=== PATIENT | male | born 1945 | race Caucasian/White ===

== ENCOUNTER 2023-08-23 14:39 | Inpatient (IN) | payer OTHER, MEDICARE ==
[2023-08-23 17:03] LABS: BASO % 1.4 % (0-2.0); EOS % 1.8 % (0-4.5); HEMATOCRIT 42.2 % (35.4-49); HEMOGLOBIN 14.7 GM/dL (11.7-16.9); LYMPH % 17.4 % (8-40); MCH 28.5 pg (25.7-33.7); MCHC 34.8 g/dl (32.0-35.9); MEAN CELL VOLUME 81.8 fl (80-96); MEAN PLT VOLUME 7.3 fl (7.5-11.1); MONO % 7.9 % (3.8-10.2); NEUT % 71.5 % (42.8-82.8); PLATELET COUNT 279 10^3/uL (134-434); RBC 5.16 M/mm3 (4.00-5.60); RDW 13.2 % (11.9-15.9); WHITE BLOOD COUNT 7.8 K/mm3 (4.0-10.0)
[2023-08-23 17:07] LABS: EPI CELLS 2 /uL (0-25.1); HYALINE CASTS 3 /uL (0-3.1); URINE APPEARANCE CLOUDY; URINE BACTERIA 2165 /uL (0-1359); URINE BILIRUBIN NEGATIVE (NEGATIVE); URINE COLOR YELLOW; URINE GLUCOSE (UA) NEGATIVE (NEGATIVE); URINE KETONE TRACE (NEGATIVE); URINE LEUK ESTERASE 2+ (NEGATIVE); URINE NITRITE POSITIVE (NEGATIVE); URINE PROTEIN 1+ (NEGATIVE); URINE WBC 902 /uL (0-25.8)
[2023-08-23] MEDS ORDERED: CEFTRIAXONE 1,000 MG in DEXTROSE 5%-WATER - 50 ML IVPB ONE (17:13)
[2023-08-23] MEDS ORDERED: CEFTRIAXONE 1 GM/50 ML BAG ONE (17:16)
[2023-08-23 17:18] LABS: POTASSIUM 3.6 mmol/L (3.5-5.1)
[2023-08-23 17:20] LABS: CALCIUM 9.4 mg/dL (8.5-10.1)
[2023-08-23 17:21] LABS: ALBUMIN 3.6 g/dl (3.4-5.0); BLOOD UREA NITROGEN 10.3 mg/dL (7-18); MAGNESIUM 1.9 mg/dL (1.8-2.4)
[2023-08-23 17:24] LABS: CREATININE 0.9 mg/dL (0.55-1.3)
[2023-08-23 17:25] LABS: BILIRUBIN,TOTAL 0.7 mg/dL (0.2-1); TOT PROT 6.6 g/dl (6.4-8.2)
[2023-08-23 17:52] LABS: YEAST NONE SEEN (NEGATIVE)
[2023-08-24] MEDS ORDERED: SODIUM CHLORIDE 1,000 ML IV SCH (01:30)
[2023-08-24] MEDS: INSULIN SLIDING SCALE (NOVOLOG) 1 VIAL SQ SCH ×4 (06:21→22:49)
[2023-08-24] MEDS: LOSARTAN POTASSIUM 50 MG TABLET PO SCH ×2 (06:22→09:48)
[2023-08-24 08:37] LABS: HEMATOCRIT 39.6 % (35.4-49); HEMOGLOBIN 13.2 GM/dL (11.7-16.9); MCH 27.8 pg (25.7-33.7); MCHC 33.3 g/dl (32.0-35.9); MEAN CELL VOLUME 83.5 fl (80-96); MEAN PLT VOLUME 7.7 fl (7.5-11.1); PLATELET COUNT 227 10^3/uL (134-434); RBC 4.74 M/mm3 (4.00-5.60); RDW 12.9 % (11.9-15.9); WHITE BLOOD COUNT 16.3 K/mm3 (4.0-10.0)
[2023-08-24 08:43] LABS: POTASSIUM 3.1 mmol/L (3.5-5.1)
[2023-08-24 08:51] LABS: CALCIUM 8.5 mg/dL (8.5-10.1)
[2023-08-24 08:52] LABS: BLOOD UREA NITROGEN 16.1 mg/dL (7-18); MAGNESIUM 1.9 mg/dL (1.8-2.4)
[2023-08-24 08:55] LABS: CREATININE 1.1 mg/dL (0.55-1.3); PHOSPHOROUS 2.7 mg/dL (2.5-4.9)
[2023-08-24 08:56] LABS: BILIRUBIN,TOTAL 0.8 mg/dL (0.2-1); TOT PROT 5.7 g/dl (6.4-8.2)
[2023-08-24] MEDS: ENOXAPARIN NA (PORCINE) 40 MG/0.4 ML DISP.SYRIN SQ SCH (09:48)
[2023-08-24] MEDS ORDERED: HYDROCHLOROTHIAZIDE 25 MG TABLET (FP) PO SCH (10:00)
[2023-08-24] MEDS: POTASSIUM CHLORIDE TABS 20 MEQ TABLET.ER (FP) PO SCH ×2 (10:22→22:49)
[2023-08-24] MEDS: VERAPAMIL HCL 120 MG E.R. TABLET PO SCH (12:08)
[2023-08-24] MEDS: CEFTRIAXONE 1 GM in DEXTROSE 5%-WATER - 50 ML IVPB SCH (17:45)
[2023-08-24] MEDS: FINASTERIDE 5 MG TABLET (FP) PO SCH (17:45)
[2023-08-24] MEDS ORDERED: INSULIN (NOVOLOG) ASPART 100 UNITS/ML 10ML VIAL ONE (18:46)
[2023-08-24] MEDS: QUEtiapine FUMARATE 25 MG TABLET PO SCH (22:50)
[2023-08-25] MEDS: INSULIN SLIDING SCALE (NOVOLOG) 1 VIAL SQ SCH ×4 (08:00→21:50)
[2023-08-25] MEDS: FINASTERIDE 5 MG TABLET (FP) PO SCH (09:16)
[2023-08-25] MEDS: POTASSIUM CHLORIDE TABS 20 MEQ TABLET.ER (FP) PO SCH (09:16)
[2023-08-25] MEDS: VERAPAMIL HCL 120 MG E.R. TABLET PO SCH (09:16)
[2023-08-25] MEDS: TAMSULOSIN HCL 0.4 MG CAP PO SCH (09:16)
[2023-08-25] MEDS: LOSARTAN POTASSIUM 50 MG TABLET PO SCH (09:16)
[2023-08-25] MEDS: ENOXAPARIN NA (PORCINE) 40 MG/0.4 ML DISP.SYRIN SQ SCH (09:16)
[2023-08-25 10:03] LABS: BASO % 1.2 % (0-2.0); EOS % 1.4 % (0-4.5); HEMATOCRIT 40.5 % (35.4-49); HEMOGLOBIN 13.6 GM/dL (11.7-16.9); LYMPH % 14.7 % (8-40); MCH 27.9 pg (25.7-33.7); MCHC 33.5 g/dl (32.0-35.9); MEAN CELL VOLUME 83.2 fl (80-96); MEAN PLT VOLUME 7.3 fl (7.5-11.1); MONO % 7.4 % (3.8-10.2); NEUT % 75.3 % (42.8-82.8); PLATELET COUNT 196 10^3/uL (134-434); RBC 4.86 M/mm3 (4.00-5.60); RDW 12.8 % (11.9-15.9); WHITE BLOOD COUNT 7.8 K/mm3 (4.0-10.0)
[2023-08-25 10:26] LABS: POTASSIUM 3.9 mmol/L (3.5-5.1)
[2023-08-25 10:33] LABS: ALBUMIN 3.2 g/dl (3.4-5.0); BLOOD UREA NITROGEN 14.9 mg/dL (7-18); CALCIUM 8.6 mg/dL (8.5-10.1); MAGNESIUM 1.8 mg/dL (1.8-2.4)
[2023-08-25 10:36] LABS: CREATININE 0.9 mg/dL (0.55-1.3)
[2023-08-25 10:38] LABS: BILIRUBIN,TOTAL 0.6 mg/dL (0.2-1)
[2023-08-25] MEDS: CEFTRIAXONE 1 GM in DEXTROSE 5%-WATER - 50 ML IVPB SCH (17:47)
[2023-08-25] MEDS: QUEtiapine FUMARATE 25 MG TABLET PO SCH (21:45)
[2023-08-25 23:59] VITALS: RESP 18
[2023-08-26] MEDS: INSULIN SLIDING SCALE (NOVOLOG) 1 VIAL SQ SCH ×4 (06:44→21:32)
[2023-08-26] MEDS: ENOXAPARIN NA (PORCINE) 40 MG/0.4 ML DISP.SYRIN SQ SCH (09:02)
[2023-08-26] MEDS: FINASTERIDE 5 MG TABLET (FP) PO SCH (09:03)
[2023-08-26] MEDS: TAMSULOSIN HCL 0.4 MG CAP PO SCH (09:03)
[2023-08-26] MEDS: LOSARTAN POTASSIUM 50 MG TABLET PO SCH (09:03)
[2023-08-26] MEDS: VERAPAMIL HCL 120 MG E.R. TABLET PO SCH (09:24)
[2023-08-26 09:57] LABS: EOS % 3.7 % (0-4.5); HEMATOCRIT 41.2 % (35.4-49); HEMOGLOBIN 13.6 GM/dL (11.7-16.9); LYMPH % 20.9 % (8-40); MCHC 33.1 g/dl (32.0-35.9); MEAN CELL VOLUME 84.7 fl (80-96); MEAN PLT VOLUME 7.8 fl (7.5-11.1); MONO % 8.5 % (3.8-10.2); NEUT % 65.9 % (42.8-82.8); PLATELET COUNT 196 10^3/uL (134-434); RBC 4.86 M/mm3 (4.00-5.60); RDW 13.1 % (11.9-15.9); WHITE BLOOD COUNT 7.1 K/mm3 (4.0-10.0)
[2023-08-26 10:12] LABS: POTASSIUM 4.6 mmol/L (3.5-5.1)
[2023-08-26 10:14] LABS: CALCIUM 8.7 mg/dL (8.5-10.1)
[2023-08-26 10:15] LABS: ALBUMIN 3.2 g/dl (3.4-5.0); BLOOD UREA NITROGEN 17.9 mg/dL (7-18)
[2023-08-26 10:18] LABS: CREATININE 0.9 mg/dL (0.55-1.3)
[2023-08-26 10:19] LABS: BILIRUBIN,TOTAL 0.8 mg/dL (0.2-1)
[2023-08-26] MEDS ORDERED: INSULIN (NOVOLOG) ASPART 100 UNITS/ML 10ML VIAL ONE ×2 (12:16→18:07)
[2023-08-26] MEDS: CEFTRIAXONE 1 GM in DEXTROSE 5%-WATER - 50 ML IVPB SCH (18:12)
[2023-08-26] MEDS: QUEtiapine FUMARATE 25 MG TABLET PO SCH (21:28)
[2023-08-27] MEDS: INSULIN SLIDING SCALE (NOVOLOG) 1 VIAL SQ SCH ×2 (06:54→12:18)
[2023-08-27] MEDS: ENOXAPARIN NA (PORCINE) 40 MG/0.4 ML DISP.SYRIN SQ SCH (09:19)
[2023-08-27] MEDS: VERAPAMIL HCL 120 MG E.R. TABLET PO SCH (09:19)
[2023-08-27] MEDS: LOSARTAN POTASSIUM 50 MG TABLET PO SCH (09:19)
[2023-08-27] MEDS: TAMSULOSIN HCL 0.4 MG CAP PO SCH (09:19)
[2023-08-27] MEDS: FINASTERIDE 5 MG TABLET (FP) PO SCH (09:20)
[2023-08-27 09:46] LABS: BASO % 0.9 % (0-2.0); EOS % 4.6 % (0-4.5); HEMATOCRIT 37.7 % (35.4-49); HEMOGLOBIN 13.2 GM/dL (11.7-16.9); LYMPH % 22.4 % (8-40); MCHC 34.9 g/dl (32.0-35.9); MEAN CELL VOLUME 82.9 fl (80-96); MEAN PLT VOLUME 7.9 fl (7.5-11.1); MONO % 11.2 % (3.8-10.2); NEUT % 60.9 % (42.8-82.8); PLATELET COUNT 192 10^3/uL (134-434); RBC 4.55 M/mm3 (4.00-5.60); RDW 13.1 % (11.9-15.9); WHITE BLOOD COUNT 7.1 K/mm3 (4.0-10.0)
[2023-08-27 10:09] LABS: POTASSIUM 4.2 mmol/L (3.5-5.1)
[2023-08-27 10:21] LABS: ALBUMIN 2.9 g/dl (3.4-5.0)
[2023-08-27 10:22] LABS: CALCIUM 8.4 mg/dL (8.5-10.1); MAGNESIUM 2.1 mg/dL (1.8-2.4)
[2023-08-27 10:24] LABS: CREATININE 0.8 mg/dL (0.55-1.3)
[2023-08-27 10:26] LABS: BILIRUBIN,TOTAL 0.4 mg/dL (0.2-1); TOT PROT 5.8 g/dl (6.4-8.2)
[2023-08-27 12:30] VITALS: BP 118/74; PULSE 73; TEMP 98.1
[2023-08-28] MEDS ORDERED: CEPHALEXIN MONOHYDRATE 500 MG CAPSULE (UD) PO SCH (06:00)
== END 2023-08-27 13:50 | DRG 690 ==
LOC: JER 14:39 → JERBED 19:54 → J8W 08-24 02:11 → OBSVTOIN 08-24 14:00
PROVIDERS: ADMIT Internal Medicine; ATTEND Nurse Practitioner Acute Care
DX: N39.0 Urinary tract infection, site not specified (principal); N41.0 Acute prostatitis; I10 Essential (primary) hypertension; E11.42 Type 2 diabetes mellitus with diabetic polyneuropathy
CPT/HCPCS: 0241U-QW; 36415; 70450-TC; 71045-TC-FY; 72125-TC; 72170-TC-FY; 76775-TC; 80053; 81003; 82962; 83036; 83735; 84100; 84153; 84443; 84484; 85025; 85027; 87040; 87086; 87635; 93005; 93010; 97116-GP; 97162-GP; 99285-25; G0378